=== PATIENT | male | born 1955 | race Caucasian/White ===

== ENCOUNTER 2016-12-17 09:05 | Inpatient (IN) | payer OTHER ==
[~2016-12-17] VITALS: Ht 190.5 cm; Wt 122.1 kg
[2016-12-17 09:56] LABS: URINE APPEARANCE CLEAR (CLEAR); URINE BILIRUBIN NEG (NEG); URINE COLOR DK YELLOW; URINE NITRITE NEG (NEG); URINE SPECIFIC GRAVITY 1.017 (1.000-1.030); UROBILINOGEN NEG (NEG); ZZUR CULT IF INDIC CLEAN CATCH YES
[2016-12-17 09:57] LABS: MANUAL MICROSCOPIC REQUIRED? NO; REVIEW REQ? NO
[2016-12-17] MEDS ORDERED: B-COTAB18 PO (10:26)
[2016-12-17] MEDS ORDERED: MULT-506 PO (10:26)
[2016-12-17] MEDS ORDERED: LEVO1TAB34 PO (10:26)
[2016-12-17] MEDS ORDERED: TRAM-10 PO (10:26)
[2016-12-17] MEDS ORDERED: ADAL1KIT SC (10:26)
[2016-12-17] MEDS ORDERED: PRED-301 PO (10:26)
[2016-12-17] MEDS ORDERED: VITA1TAB12 PO (10:26)
[2016-12-17] MEDS ORDERED: FOLI1TAB7 PO (10:26)
[2016-12-17] MEDS ORDERED: METH2.5T PO (10:26)
[2016-12-17] MEDS ORDERED: CALC600T9 PO (10:26)
[2016-12-17] MEDS ORDERED: ASPI81TA28 PO (10:26)
[2016-12-17] MEDS ORDERED: COD1000C PO (10:26)
[2016-12-17] MEDS ORDERED: OMEG10007 PO (10:26)
[2016-12-17] MEDS ORDERED: LISI-787 PO (10:26)
[2016-12-17] MEDS ORDERED: PIPERACILLIN/TAZOBACTAM 3.375 GM/100ML D5W IV STA (10:32)
[2016-12-17] MEDS ORDERED: PIPERACILL/TAZOBAC IV 3.375 GM in DEXTROSE 5% 100ML IV ONE (11:00)
[2016-12-17 11:37] LABS: BASO % 0.2 %; BASO ABS # 0.02 K/uL (0-0.2); COMPLETE YES; EOS % 1.1 %; HEMATOCRIT 41.5 % (42-52); IG% 0.2 %; LYMPH % 28.7 %; LYMPH ABS # 2.43 K/uL (1.2-3.4); MEAN CELL VOLUME 96.7 fL (80-100); MEAN CORPUSCULAR HGB CONC 35.2 g/dl (32-36); MEAN PLATELET VOLUME 10.3 fL (7.4-10.4); MONO % 8.6 %; NEUT % 61.2 %; PLATELET COUNT 246 K/uL (130-400); RED BLOOD COUNT 4.29 M/uL (4.7-6.1); WHITE BLOOD COUNT 8.47 K/uL (4.8-10.8)
[2016-12-17 11:45] LABS: CALCIUM 9.4 mg/dl (8.5-10.1); CREATININE 0.87 mg/dl (0.60-1.40)
--- NOTE | 2016-12-17 12:00 | Pharmacy Progress Note ---
ED Pharmacist Culture FollowUp Date of Service: Dec 17, 2016. Situation Reviewed printed report of sensitivities of E. coli isolated in urine culture obtained 12/14 @ 8091 at [facility] Background Susceptible: meropenem, Zosyn Intermediate: Macrobid Resistant: ampicillin, Unasyn, ceftriaxone, ciprofloxacin, levofloxacin, gentamicin, tobramycin, Bactrim Pending: cefepime Assessment No oral options available, therefore must use IV. Would prefer once daily dosing for eventual ease of outpatient administration, however both meropenem and Zosyn need to be administered multiple times per day. Ertapenem would allow for once daily administration, however sensitivities were not reported. Called [facility] Fanta Walter who referred me to [facility] [employer] . Spoke with microbiology lab who noted E test for ertapenem is currently pending - anticipate results later today. Recommendation Call [facility] to re-inquire about pending sensitivity to ertapenem [email or web address]: Ask for technologist in microbiology sensitivities (Bernice) Results anticipated 12/17 @ 1600
[2016-12-17] MEDS ORDERED: IV FLUIDS COMPLETED PRN (12:30)
[2016-12-17 13:30] VITALS: BP 144/89; PULSE 63; TEMP 36.7; O2SAT 97
[2016-12-17] MEDS ORDERED: PIPERACILL/TAZOBAC CONSULT ACTIVE PRN (13:45)
--- NOTE | 2016-12-17 13:48 | EMERGENCY ROOM VISIT NOTE ---
History Report prepared by Mckenna: Lety De Los Santos Under the Supervision of: Dr. Rich Knox D.O. First contact with patient: 09:26 Chief Complaint: REFERRED BY DOCTOR Stated Complaint: DR REFERRED History of Present Illness The patient is a 61 year old male who presents to the Emergency Room with complaints of constant urinary symptoms for the past couple of weeks. The patient states that his symptoms initially began the day after Labor Day. He had some bad food on Labor Day and had food poisoning. He states that he has been unable to urinate normally since that time. His right testicle has also been swollen and hard. The patient reports burning with urination and decreased urinary output. He has been feverish on and off. The patient saw his PCP on and was started on antibiotics for a UTI. His symptoms persisted. He was evaluated at his PCP's office three days ago and started on Levaquin. He received a phone call from the office yesterday saying that his urine culture grew out E.Coli and that he should come to the ED for IV antibiotics because it was resistant to the Levaquin. The patient had an ultrasound of his testicle on 11/28/16. Source of History: patient Onset: a couple of weeks ago Position: other (urinary tract) Quality: burning Timing: constant Modifying Factors (Worsening): urination Associated Symptoms: + fevers Note: Pt reports right testicle swollen and hard. Review of Systems See HPI for pertinent positives & negatives. A total of 10 systems reviewed and were otherwise negative. Past Medical & Surgical Medical Problems: (1) Rheumatoid arthritis (2) UTI (urinary tract infection) Family History No pertinent history stated. Social History Smoking Status: Never Smoker Current/Historical Medications Scheduled Adalimumab (Humira), 40 MG SC [id number] Aspirin (Aspirin Ec), 81 MG PO DAILY B-Complex Vitamins (Vitamin B Complex), 1 TAB PO DAILY Calcium Carbonate-Vitamin D (Calcium + D), 1 TAB PO BID Cod Liver Oil (Cod Liver Oil 1000 mg), 1 CAP PO BID Fish Oil (Jennings-3), 1,000 MG PO BID Folic Acid (Folvite), 1 MG PO DAILY Levofloxacin (Levaquin), 500 MG PO DAILY Lisinopril & Hydrochlorothiazi (Zestoretic 20-12.5 mg), 1 TAB PO DAILY Methotrexate (Methotrexate), 20 MG PO WK Multivitamin (Multivitamin), 1 TAB PO DAILY Prednisone (Prednisone), 5-20 MG PO DAILY Vitamin E (Vitamin E), 100 MG PO DAILY Scheduled PRN Tramadol (Ultram), 50 MG PO Q6 PRN for Pain Allergies Coded Allergies: No Known Allergies (Unverified , 12/17/16) Physical Exam Vital Signs Date Time Temp Pulse Resp B/P (MAP) Pulse Ox O2 Delivery O2 Flow Rate FiO2 12/17/16 12:00 95 16 123/85 96 Room Air 12/17/16 11:18 66 16 122/86 97 Room Air 12/17/16 09:07 36.7 83 18 162/95 96 Room Air Physical Exam CONSTITUTIONAL/VITAL SIGNS: Reviewed / noted above. GENERAL: Non-toxic in appearance. INTEGUMENTARY: Warm, dry, and [place]. HEAD: Normocephalic. EYES: without scleral icterus or trauma. ENT/OROPHARYNX: clear and moist. LYMPHADENOPATHY/NECK: Is supple without lymphadenopathy or meningismus. RESPIRATORY: Lungs clear and equal. CARDIOVASCULAR: Regular rate and rhythm. GI/ABDOMEN: Soft and nontender. No organomegaly or pulsatile mass. No rebound or guarding. Normal bowel sounds. EXTREMITIES: Warm and well perfused. BACK: No CVA tenderness. NEUROLOGICAL: Intact without focal deficits. PSYCHIATRIC: normal affect. MUSCULOSKELETAL: Normally developed with good muscle tone. Medical Decision & Procedures Laboratory Results 12/17/16 10:40 Red Blood Count 4.29, Mean Corpuscular Volume 96.7, Mean Corpuscular Hemoglobin 34.0, Mean Corpuscular Hemoglobin Concent 35.2, Mean Platelet Volume 10.3, Neutrophils (%) (Auto) 61.2, Lymphocytes (%) (Auto) 28.7, Monocytes (%) (Auto) 8.6, Eosinophils (%) (Auto) 1.1, Basophils (%) (Auto) 0.2, Neutrophils # (Auto) 5.18, Lymphocytes # (Auto) 2.43, Monocytes # (Auto) 0.73, Eosinophils # (Auto) 0.09, Basophils # (Auto) 0.02 12/17/16 10:40 Test 12/17/16 09:30 12/17/16 10:40 Urine Color DK YELLOW Urine Appearance CLEAR (CLEAR) Urine pH 6.0 (4.5-7.5) Urine Specific [place] 1.017 (1.000-1.030) Urine Protein NEG (NEG) Urine Glucose (UA) NEG (NEG) Urine Ketones NEG (NEG) Urine Occult Blood NEG (NEG) Urine Nitrite NEG (NEG) Urine Bilirubin NEG (NEG) Urine Urobilinogen NEG (NEG) Urine Leukocyte Esterase SMALL (NEG) Urine WBC (Auto) 10-30 /hpf (0-5) Urine RBC (Auto) 0-4 /hpf (0-4) Urine Hyaline Casts (Auto) 1-5 /lpf (0-5) Urine Epithelial Cells (Auto) 5-10 /lpf (0-5) Urine Bacteria (Auto) NEG (NEG) White Blood Count 8.47 K/uL (4.8-10.8) Red Blood Count 4.29 M/uL (4.7-6.1) Hemoglobin 14.6 g/dL (14.0-18.0) Hematocrit 41.5 % (42-52) Mean Corpuscular Volume 96.7 fL (80-100) Mean Corpuscular Hemoglobin 34.0 pg (25-34) Mean Corpuscular Hemoglobin Concent 35.2 g/dl (32-36) Platelet Count 246 K/uL (130-400) Mean Platelet Volume 10.3 fL (7.4-10.4) Neutrophils (%) (Auto) 61.2 % Lymphocytes (%) (Auto) 28.7 % Monocytes (%) (Auto) 8.6 % Eosinophils (%) (Auto) 1.1 % Basophils (%) (Auto) 0.2 % Neutrophils # (Auto) 5.18 K/uL (1.4-6.5) Lymphocytes # (Auto) 2.43 K/uL (1.2-3.4) Monocytes # (Auto) 0.73 K/uL (0.11-0.59) Eosinophils # (Auto) 0.09 K/uL (0-0.5) Basophils # (Auto) 0.02 K/uL (0-0.2) RDW Standard Deviation 47.2 fL (36.4-46.3) RDW Coefficient of Variation 13.7 % (11.5-14.5) Immature Granulocyte % (Auto) 0.2 % Immature Granulocyte # (Auto) 0.02 K/uL (0.00-0.02) Anion Gap 8.0 mmol/L (3-11) Est Creatinine Clear Calc Drug Dose 127.1 ml/min Estimated GFR () 108.7 Estimated GFR (Non- 93.8 BUN/Creatinine Ratio 15.0 (10-20) Calcium Level 9.4 mg/dl (8.5-10.1) Laboratory results as stated above per my review. Medications Administered Medications (Trade) Dose Ordered Sig/Rajesh Route Start Time Stop Time Status Last Admin Dose Admin Piperacillin Sod/ Tazobactam Sod 3.375 gm/Dextrose 115 ml @ 230 mls/hr NOW ONCE IV 12/17/16 11:00 12/17/16 11:29 DC 12/17/16 10:54 230 MLS/HR ED Course 09: Previous medical records were reviewed. The patient was evaluated in room B7. A complete history and physical examination was performed. 1032: Zosyn 3.375 gm IV 1044: I updated the patient on his results and treatment plan. He is doing well and getting his IV. 1100: Piperacillin Sod/Tazobactam Sod 3.375 gm/Dextrose 115 ml @ 230 mls/hr IV 1201: I spoke with Alisa Ugarte PA-C. We discussed the patients case. The patient will be evaluated by the [facility] Hospitalist Group for further management. 1213: I reassessed the patient at this time. He is feeling better and resting comfortably. I discussed the results and treatment plan with the patient. I answered all pertaining questions that he had. He expressed understanding and verbalized agreement. Medical Decision Differential considered: pancreatitis, hepatitis, or acute cholecystitis, AAA, UTI, pyelonephritis, kidney stones, appendicitis, diverticulitis, shingles, bowel obstruction mesenteric ischemia, intussusception, hernia, testicular torsion. This is a 61-year-old male who presents to the ED with a chief complaint of UTI. The patient was sent from PCP for urine culture that is only sensitive to IV antibiotics. The patient has an unremarkable exam. Vital signs are stable. The patient was treated with IV Zosyn. Urine today does not clearly show an infection. Urine cultures pending. Blood work was unremarkable. The patient was seen by the hospitalist service. See pharmacy note for additional information. Medication Reconcilliation Current Medication List: was personally reviewed by me Blood Pressure Screening Patient's blood pressure: Normal blood pressure Consults Time Called: 1158 Consulting Physician: Alisa Ugarte PA-C Returned Call: 1201 I spoke with Alisa Ugarte PA-C. We discussed the patients case. The patient will be evaluated by the [facility] Hospitalist Group for further management. Impression Primary Impression: E. coli UTI (urinary tract infection) Scribe Attestation The scribe's documentation has been prepared under my direction and personally reviewed by me in its entirety. I confirm that the note above accurately reflects all work, treatment, procedures, and medical decision making performed by me. Departure Information Dispostion Being Evaluated By Hospitalist Referrals Radha Rouse M.D. (PCP) Patient Instructions My [facility]
[2016-12-17 14:25] VITALS: BP 144/89; PULSE 63; TEMP 36.7; O2SAT 97; Ht 190.5 cm; Wt 122.1 kg
[2016-12-17] MEDS: SODIUM CHLORIDE 0.9% 1000ML 1,000 ML IV SCH (14:35)
--- NOTE | 2016-12-17 14:39 | Progress Note ---
Progress Note Date of Service Dec 17, 2016. Progress Note ID Consult Dictated #[id number] A/P: 1. UTI -Continue zosyn, further abx recs when culture available -thank you
--- NOTE | 2016-12-17 15:16 | INFECT. DISEASE CONSULTATION ---
DATE OF CONSULTATION: 12/17/2016 DATE OF CONSULTATION: 12/17/2016 HISTORY OF PRESENT ILLNESS: This is a 61-year-old gentleman who was told by his primary care office to come to the Emergency Room for intravenous antibiotics. He has been having urinary tract issues since Labor weekend. He reportedly was on antibiotics, multiple times for previously diagnosed UTI as an outpatient. He recently was started on Levaquin by his PCP after having symptoms of dysuria and also hardening of his right testicle. This has been ongoing. He reportedly had an ultrasound done as an outpatient which was unremarkable for any fluid collection. He states that he was having difficulty with urination and some dysuria; however, he denies any bleeding or any fevers or chills. He did have a urine culture done as an outpatient and was placed empirically on Levaquin. He took this Wednesday, Wednesday and Wednesday and did feel some improvement with his symptoms. He was called by his primary care physician and was told that this isolate was resistant to Levaquin that he needed to come to the Emergency Room for intravenous antibiotics. He was started on intravenous Zosyn and subsequently admitted to the hospital. He has been afebrile since admission. He has no complaints currently. He states that he has no chest pain, cough, shortness of breath, nausea, vomiting, diarrhea or abdominal pain. His appetite has been stable at home. Again, he currently has no urinary complaints and he feels somewhat improved and that the induration and swelling of his right testicular area is improving. All remaining review of systems are reviewed and are unremarkable. I do not have final culture and sensitivity results to review at this time. PAST MEDICAL HISTORY: Significant for rheumatoid arthritis and recently diagnosed UTI. FAMILY HISTORY: Noncontributory. SOCIAL HISTORY: Negative for tobacco use, alcohol use or drug use. ALLERGIES: He has no known drug allergies. CURRENT MEDICATIONS: Include folic acid, multivitamins, lisinopril, prednisone, calcium with vitamin D, omega 3 acids, Zosyn and Ultram. PHYSICAL EXAMINATION: VITAL SIGNS: He is afebrile, pulse 63, respiratory rate 16, blood pressure 144/89, oxygen saturation is 97% on room air. GENERAL: He is awake, alert and oriented x3. He is in no acute distress. HEAD, EYES, EARS, NOSE, AND THROAT: Mucous membranes are moist. Extraocular muscles are intact. HEART: Regular. LUNGS: Clear bilaterally. ABDOMEN: Soft, nontender, nondistended. EXTREMITIES: There is no lower extremity edema bilaterally. Examination of the scrotum reveals minimal erythema. There is no warmth or tenderness. There is no induration or fluctuance. There are no open areas. LABORATORY STUDIES: CBC reveals a white blood cell count of 8.4, hemoglobin 14.6 and platelets are 246. Chemistry panel reveals a sodium of 139, potassium 4.0, chloride 104, bicarb 27, BUN 13, creatinine 0.7 and glucose is 96. Blood and urine cultures are pending. There is no imaging to review. Previous urine culture is not available for my review. ASSESSMENT AND PLAN: Urinary tract infection. He likely will need to complete a 7-day course of antibiotics once final outpatient culture is available for review. Additional antibiotic recommendations will be made at that time. Thank you for this consultation.
--- NOTE | 2016-12-17 15:19 | HISTORY & PHYSICAL EXAMINATION ---
DATE OF ADMISSION: 12/17/2016 TIME: 1:41 p.m. HISTORY OF PRESENT ILLNESS: The patient is a very pleasant 61-year-old male with a history of rheumatoid arthritis, on methotrexate, Humira and prednisone, follows with Dr. Santana, hypertension and presenting with fevers, chills, dysuria and right testicular swelling since the beginning of the month. The patient follows with Dr. Rouse for primary care, Dr. Santana for rheumatology. The patient presented to his PCP back on 11/25/2016 for fever, chills, dysuria and right testicular swelling. Testicular ultrasound at that time was done, revealing orchitis, epididymitis and hydrocele. The patient was placed on ciprofloxacin p.o. for 10 days. Per patient, his symptoms improved but did not completely resolve. He then presented to his PCP back on 12/14/2016 and was prescribed empirically with Levaquin p.o. and was referred to urology. Two days later, the patient's urine culture came back and it was revealing E. coli multidrug resistant, sensitive to meropenem, Zosyn and intermediate to nitrofurantoin. The patient was called and was advised to come to the ER for further evaluation and management. At the ER, the patient was received with stable vital signs. Afebrile, blood pressure improved to 123/85, temperature is 36.7, pulse rate 95, respiratory rate is 16. White count is 8.4, creatinine is 0.87. Blood cultures are pending and urine cultures are also pending. On my exam, the patient is resting in bed, comfortable, still has some mild dysuria and also sweats over the weekend. He also reports that the right testicle swelling has improved but not completely resolved as well as the pain. Denies other symptoms. Denies headache, dizziness, nausea, vomiting, chest pain, shortness of breath, palpitations, abdominal pain, flank pain, changes with bowel movement. Denies hematuria. REVIEW OF SYSTEMS: All 10 systems reviewed and negative except for the ones mentioned above. PAST MEDICAL HISTORY: As per my H&P. MEDICATIONS: He takes levofloxacin 500 mg daily, Humira 40 mg injection under the skin every 2 weeks, tramadol 50 mg every 6 hours as needed, vitamin B complex daily, lisinopril/hydrochlorothiazide 20/12.5 mg p.o. daily, aspirin 81 mg daily, prednisone 5 mg b.i.d., methotrexate 2.5 mg 8 tablets once a week, vitamin E daily, folic acid daily, calcium and vitamin D daily, multivitamins daily, fish oil b.i.d., cod liver oil b.i.d. and calcium b.i.d. as well. PAST SURGICAL HISTORY: Colonoscopy, elbow arthroscopy, knee arthroscopy. FAMILY HISTORY: The patient has a history of arthritis. Father, cancer and diabetes, mother. PERSONAL AND SOCIAL HISTORY: He is . He is a former smoker. Denies alcohol or drug use. PHYSICAL EXAMINATION: VITAL SIGNS: Blood pressure is 123/85, pulse rate of 95, respiratory rate of 16, temperature 36.7, saturating 96% on room air. GENERAL: The patient is awake, alert, oriented x3, not in distress, speaks in sentences. No accessory muscle use. HEAD AND NECK: Atraumatic and normocephalic. Normal pupils. Full EOMs. No icterus. [place] conjunctivae. ENT: Grossly normal. NECK: No JVD, no lymphadenopathy or thyromegaly. HEART: Normal rate. Regular rhythm. No murmurs. LUNGS: Clear breath sounds bilaterally, rales or wheezes. ABDOMEN: Nondistended, normal bowel sounds, soft, nontender. EXTREMITIES: No bipedal edema. No rashes noted. GENITAL: The patient has an enlarged right testicle with no erythema, warmth or tenderness. Penile exam is essentially normal. LABS: White count is 8.4, hemoglobin is 14.6, platelet count 246. Chemistry -- sodium 139, potassium 4.0, BUN is 13, creatinine is 0.87, random glucose 96. Urinalysis, leukocyte esterase (+) WBC 10-30, epithelial cells 5-10. Blood cultures, urine cultures pending. ASSESSMENT AND PLAN: This is a very pleasant 61-year-old male with a history of rheumatoid arthritis, on Humira, prednisone and methotrexate, hypertension, presenting with dysuria, fever, chills and right testicular enlargement and pain times at least 3 weeks. 1. Urinary tract infection with multidrug resistant Escherichia coli sensitive to Zosyn and meropenem. The patient is not presenting with sepsis syndrome, afebrile, no leukocytosis but the urine culture is currently positive for Escherichia coli multidrug resistant, sensitive to Zosyn and meropenem. 2. Empiric Zosyn IV will be given, also IV fluids and an infectious disease consult will be placed. Anticipate PICC line placement and selection of once a day antibiotic regimen for at least 7-10 days. Awaiting final ID recommendations. The patient is amenable and agreeable to home IV antibiotics. 3. Orchitis with hydrocele in the setting of an Escherichia coli multidrug resistant urinary tract infection. This is based on ultrasound done in [facility] as an outpatient on 11/25/2016. The patient reports that with p.o. antibiotics, the swelling has improved but not completely. We will order a repeat testicular ultrasound to determine if there are any changes and we will consult urologist, Dr. Marvin. Antibiotic management as noted above and he will be placed on tramadol. 4. Rheumatoid arthritis, on prednisone, Humira and methotrexate. The patient reports that he has chronic bilateral hand pain and shoulder pain which is at baseline at this time. He currently takes prednisone 5 mg b.i.d., which will be continued and his Humira and methotrexate will be on hold, last taken Humira Wednesday, methotrexate last Wednesday. I have discussed the case with Dr. Catalan on the phone. In light of the ongoing infection, he recommends decrease the Prednisone to 5mg po daily and monitor response. 5. Hypertension, currently stable. Hold hydrochlorothiazide. The patient is currently on IV fluids because of an ongoing infection. We will continue lisinopril 20 mg daily, monitor BP. 6. Deep venous thrombosis prophylaxis, SCDs for now for possible urologic intervention. Otherwise, SCDs and early ambulation will be encouraged. CODE STATUS: Full code as per patient. DISPOSITION: Pending, likely to be discharged. Anticipate to be discharged when medically stable with PICC line, IV antibiotics. Follows with Dr. Rouse for primary care and Dr. Catalan for rheumatology. [facility] INSANEGreg
[2016-12-17] MEDS ORDERED: INFLUENZA ADMINISTRATION CHARGE ONE (15:30)
[2016-12-17] MEDS ORDERED: INFLUENZA VIRUS QUAD VACCINE 0.5 ML SYR IM. ONE (15:30)
--- NOTE | 2016-12-17 15:48 | DIAGNOSTIC IMAGING REPORT ---
(TESTICULAR) SCROTUM-CONT CLINICAL HISTORY: 61 years-old Male presenting with testicular swelling and pain, UTI. TECHNIQUE: Real-time grayscale and color and spectral Doppler ultrasound imaging of the scrotum was performed. COMPARISON: None. FINDINGS: Right testis: Normal echogenicity and echotexture. Testis measures 6.0 x 3.2 x 3.9 cm. Hyperemic testis with normal arterial waveforms in the testicular parenchyma. Enlarged and echogenic epididymis, which is hyperemic. Small hydrocele. No varicocele. Left testis: Normal echogenicity and echotexture. Testis measures 4.8 x 2.3 x 3.1 cm. Normal color Doppler flow and arterial waveforms in the testicular parenchyma. Epididymal head normal. Small hydrocele. No varicocele. Asymmetric hyperemia of the right testis. IMPRESSION: Findings consistent with right epididymitis-orchitis. Electronically signed by: Gil Neely M.D. 12/17/2016 3:46 PM Dictated Date/Time: 12/17/2016 3:44 PM
[2016-12-17] MEDS: PIPERACILL/TAZOBAC IV 3.375 GM in DEXTROSE 5% 100ML 100 ML IV SCH (16:23)
[2016-12-17] MEDS ORDERED: ONDANSETRON INJ 2 MG/ML 2 ML VIAL IV PRN (18:15)
[2016-12-17] MEDS ORDERED: ACETAMINOPHEN 325 MG TAB PO PRN (18:15)
--- NOTE | 2016-12-17 19:24 | Progress Note ---
Progress Note Date of Service Dec 17, 2016. Progress Note [facility] pharmacy coordinated with [facility] Microbiology E coli will be tested for sensitivity with Ertapenem (once a day dosing) please follow up Rodolfo Marques MD
[2016-12-17 20:00] VITALS: O2SAT 97
[2016-12-17] MEDS: OMEGA-3 (PURIFIED FISH OIL) 1 GM CAP PO SCH (20:42)
[2016-12-17] MEDS: CALCIUM 600MG + VIT D 400 IU TAB PO SCH (20:56)
[2016-12-17] MEDS ORDERED: COD LIVER OIL PO SCH (21:00)
[2016-12-17] MEDS ORDERED: CALCIUM 600MG + VIT D 400 IU TAB PO SCH (21:00)
[2016-12-17] MEDS ORDERED: OMEGA-3 (PURIFIED FISH OIL) 1 GM CAP PO SCH (21:00)
[2016-12-17] MEDS: TRAMADOL HCL 50 MG TAB PO PRN (21:07)
[2016-12-17 23:32] VITALS: BP 103/64; PULSE 62; TEMP 36.7; O2SAT 96
[2016-12-18] VITALS: O2SAT 97
[2016-12-18] MEDS ORDERED: KETOROLAC TROMETHAMINE 30 MG/ML VIAL IV STA (00:05)
[2016-12-18] MEDS ORDERED: IBUPROFEN 200 MG TAB PO PRN (00:15)
[2016-12-18] MEDS: PIPERACILL/TAZOBAC IV 3.375 GM in DEXTROSE 5% 100ML 100 ML IV SCH ×2 (00:38→07:40)
[2016-12-18] MEDS: SODIUM CHLORIDE 0.9% 1000ML 1,000 ML IV SCH ×2 (03:58→16:34)
[2016-12-18 07:17] LABS: BASO % 0.2 %; BASO ABS # 0.01 K/uL (0-0.2); COMPLETE YES; EOS % 1.7 %; HEMATOCRIT 39.6 % (42-52); IG% 0.2 %; LYMPH % 49.7 %; LYMPH ABS # 2.89 K/uL (1.2-3.4); MEAN CELL VOLUME 95.4 fL (80-100); MEAN CORPUSCULAR HEMOGLOBIN 32.8 pg (25-34); MEAN CORPUSCULAR HGB CONC 34.3 g/dl (32-36); MEAN PLATELET VOLUME 9.5 fL (7.4-10.4); MONO % 13.1 %; NEUT % 35.1 %; PLATELET COUNT 190 K/uL (130-400); RED BLOOD COUNT 4.15 M/uL (4.7-6.1); WHITE BLOOD COUNT 5.81 K/uL (4.8-10.8)
[2016-12-18] MEDS: CALCIUM 600MG + VIT D 400 IU TAB PO SCH (07:41)
[2016-12-18] MEDS: OMEGA-3 (PURIFIED FISH OIL) 1 GM CAP PO SCH (07:41)
[2016-12-18 07:48] LABS: BUN/CREATININE RATIO 13.7 (10-20); CALCIUM 8.6 mg/dl (8.5-10.1); POTASSIUM 4.2 mmol/L (3.5-5.1)
[2016-12-18] MEDS: TRAMADOL HCL 50 MG TAB PO PRN (07:54)
[2016-12-18 07:55] VITALS: BP 124/76; PULSE 64; TEMP 36.8; O2SAT 94
[2016-12-18] MEDS ORDERED: TOCOPHERYL, DL-ALPHA 100 INTERUNIT CAP PO SCH (09:00)
[2016-12-18] MEDS ORDERED: LISINOPRIL 20 MG TAB PO SCH (09:00)
[2016-12-18] MEDS ORDERED: MULTIVITAMIN TAB PO SCH (09:00)
[2016-12-18] MEDS ORDERED: VITAMIN B COMPLEX TAB PO SCH (09:00)
[2016-12-18 09:40] VITALS: O2SAT 94
--- NOTE | 2016-12-18 09:54 | Urology Consultation ---
History General Date of Service: Dec 18, 2016. Primary Care Physician: Radha Rouse M.D. Pt seen a urologist before?: No History of Present Illness 61 year old male admitted with UTI and epididymitis and orchitis. Pt reports he has been evaluated by his PCP starting on for complaints of fever and chills, Noted swelling of right testicle with pain and redness. He was treated initially with 10 days of Cipro BID. It improved somewhat but returned and worsened. This Wednesday- 12/14 he started Levaquin but reports it did not improve and he was sent to ER by PCP. Spoke with Dr. Toro- pt's previous urine culture from [facility] showed resistance pattern especially to oral antibiotics. He is currently on IV Zosyn. Reviewed testicular u/s images- note orchitis and epididymitis. He is afebrile and reports pain has subsided. White count and creatinine are normal. Initially he had bothersome urinary symptoms but these have resolved. Denies visible blood in his urine. Laboratory Labs were reviewed and are within normal limits unless listed below. Labs are available in the chart and at [facility] Problem List Medical Problems: (1) E. coli UTI (urinary tract infection) Status: Acute Past History rheumatoid arthritis Past Surgical History: orthopedic surgery Allergies Coded Allergies: No Known Allergies (Unverified , 12/17/16) Medications Home Medications: Home Meds and Scripts Medications Dose Route/Sig Max Daily Dose Days Date Category Dose Instructions Blanchard-3 (Fish Oil) 1 Ea Cap 1,000 Mg PO BID 12/17/16 Reported Vitamin B Complex (B-Complex Vitamins) 1 Tab Tab 1 Tab PO DAILY 12/17/16 Reported Cod Liver Oil 1000 mg (Cod Liver Oil) 1 Cap Cap 1 Cap PO BID 12/17/16 Reported Multivitamin (Multivitamins) Tab 1 Tab PO DAILY 12/17/16 Reported Calcium + D (Calcium Carbonate-Vitamin D) 1 Tab Tab 1 Tab PO BID 12/17/16 Reported 600-400MG Folvite (Folic Acid) 1 Mg Tab 1 Mg PO DAILY 12/17/16 Reported Vitamin E 100 Unit Tab 100 Mg PO DAILY 12/17/16 Reported Methotrexate 2.5 Mg Tab 20 Mg PO WK 12/17/16 Reported EIGHT 2.5 MG TABLETS Prednisone 5 Mg Tab 5-20 Mg PO DAILY 12/17/16 Reported Aspirin Ec (Aspirin) 81 Mg Tab 81 Mg PO DAILY 12/17/16 Reported Zestoretic 20-12.5 mg (Lisinopril & Hydrochlorothiazi) 1 Tab Tab 1 Tab PO DAILY 12/17/16 Reported Ultram (Tramadol HCl) 50 Mg Tab 50 Mg PO Q6 PRN 12/17/16 Reported Humira (Adalimumab) 40 Mg/0.8 Ml Kit 40 Mg SC [id number] 12/17/16 Reported Levaquin (Levofloxacin) 500 Mg Tab 500 Mg PO DAILY 12/17/16 Reported X 10 DAYS, UNTIL GONE. Inpatient Medications: Current Inpatient Medications Medications (Trade) Dose Ordered Sig/Rajesh Route Start Time Stop Time Status Last Admin Dose Admin Miscellaneous (Iv Fluids Completed) 1 ea PRN PRN N/A 12/17/16 12:30 12/17/17 12:29 Piperacillin Sod/ Tazobactam Sod 3.375 gm/Dextrose 115 ml @ 28.75 mls/ hr Q8H IV 12/17/16 16:00 12/27/16 15:59 12/18/16 07:40 28.75 MLS/HR Sodium Chloride 1,000 ml @ 75 mls/hr [id number] IV 12/17/16 13:30 01/16/17 13:29 12/18/16 03:58 75 MLS/HR Folic Acid (Folvite Tab) 1 mg DAILY PO 12/18/16 09:00 01/17/17 08:59 12/18/16 07:41 1 MG Multivitamins (Multivitamin Tab) 1 tab DAILY PO 12/18/16 09:00 01/17/17 08:59 12/18/16 07:41 1 TAB Tramadol HCl (Ultram Tab) 50 mg Q6 PRN PO 12/17/16 13:45 01/16/17 13:44 12/18/16 07:54 50 MG Vitamin B Complex (Vitamin B Complex) 1 tab DAILY PO 12/18/16 09:00 01/17/17 08:59 oh-Bukpy-Vojcrgurou Acetate (Vitamin E Cap) 100 interunit DAILY PO 12/18/16 09:00 01/17/17 08:59 12/18/16 07:42 100 INTERUNIT Lisinopril (Zestril Tab) 20 mg QAM PO 12/18/16 09:00 01/17/17 08:59 12/18/16 07:44 20 MG Piperacillin Sod/ Tazobactam Sod (Consult) 1 ea UD PRN N/A 12/17/16 13:45 01/16/17 13:44 Fish Oil (Blanchard-3 (Purified Fish Oil) Cap) 1 gm BID PO 12/17/16 21:00 01/16/17 20:59 12/18/16 07:41 1 GM Acetaminophen (Tylenol Tab) 650 mg Q4H PRN PO 12/17/16 18:15 01/16/17 18:14 Ondansetron HCl (Zofran Inj) 4 mg Q6H PRN IV 12/17/16 18:15 01/16/17 18:14 Calcium/Vitamin D (Caltrate Plus Tab) 1 tab BID PO 12/17/16 21:00 01/16/17 20:59 12/18/16 07:41 1 TAB Prednisone (PredniSONE TAB) 5 mg BID PO 12/18/16 09:00 01/16/17 20:59 12/18/16 07:41 5 MG Ibuprofen (Advil Tab) 400 mg Q6H PRN PO 12/18/16 00:15 01/17/17 00:14 Review of Systems Review of Systems Constitutional: No fever, No chills Neurological: No dizzy Endocrine: No excessive thirst Gastrointestinal: No abdominal pain, No nausea Cardiovascular: No chest pain Respiratory: No shortness of breath Skin: No rash Blood / Lymphatic: No bleed easily Ears / Nose / Throat: No hearing loss Psychologic / Mental: No nervous Male : + see HPI Physical Exam Vital Signs: Vital Signs Past 12 Hours Date Time Temp Pulse Resp B/P (MAP) Pulse Ox O2 Delivery O2 Flow Rate FiO2 12/18/16 09:40 Room Air 12/18/16 07:55 36.8 64 24 124/76 (92) 94 Room Air 12/18/16 00:00 97 Room Air 12/17/16 23:32 36.7 62 22 103/64 (77) 96 Room Air Physical Exam: General Appearance: WD/WN, no apparent distress ENT: hearing grossly normal Neck: no JVD Respiratory/Chest: lungs clear, normal breath sounds, no respiratory distress, no accessory muscle use Cardiovascular: regular rate, rhythm, no edema, no gallop, no JVD, no murmur Genitourinary - Male: Penis: normal penis Urethral Meatus: normal urethral meatus Testes: tenderness, size (right orchitis firm and enlarged) Epididymides: enlarged (right), tender (right) Scrotum: pertinent finding (erythematous) Extremities: normal inspection, no pedal edema, no calf tenderness Neurologic/Psychiatric: alert, normal mood/affect, oriented x 3 Skin: normal color, warm/dry, no rash Assessment & Plan Assessment & Plan epididymitis and orchitis UTI According to previous urine culture sensitivities- no available oral antibiotics. Recommend inserting PICC Line and treating with ertapenem IV daily for 14 days. Also recommend treating with trimethoprim 100mg nightly for 14 days once ertapenem course is finished. Pt reports he has appt with Dr. Marvin on Dec 31. He has not been seen by her in the past. If he would like to follow with us we are happy to see him. Our office will contact pt to ensure he has urologic follow up with at least 1 urologic service. Thanks for the consult. No further management for now. Please recall prn.
--- NOTE | 2016-12-18 10:43 | Progress Note ---
Subjective Date of Service: Dec 18, 2016. Subjective Pt evaluation today including: conversation w/ patient, physical exam, chart review, lab review pt feeling better. no f/c. no pain, no gu symptoms. tolerating abx. had ultrasound testicle, orchitis right. repeat urine culture with E. coli as well. final pending. blood cultures pending. previous outpt urine culture reportedly sensitive to Ertapenem. He remains on zosyn. awaiting picc line. all remaining ros reveiwed and are negative. Problem List Medical Problems: (1) E. coli UTI (urinary tract infection) Status: Acute Objective Vital Signs Date Time Temp Pulse Resp B/P (MAP) Pulse Ox O2 Delivery O2 Flow Rate FiO2 12/18/16 09:40 94 Room Air 12/18/16 08:00 Room Air 12/18/16 07:55 36.8 64 24 124/76 (92) 94 Room Air 12/18/16 00:00 97 Room Air 12/17/16 23:32 36.7 62 22 103/64 (77) 96 Room Air 12/17/16 20:00 97 Room Air 12/17/16 14:25 36.7 63 16 144/89 97 Room Air 12/17/16 13:30 36.7 63 16 144/89 (107) 97 Room Air 12/17/16 13:22 90 16 130/87 98 12/17/16 12:00 95 16 123/85 96 Room Air 12/17/16 11:18 66 16 122/86 97 Room Air Physical Exam General Appearance: WD/WN, no apparent distress Eyes: normal inspection, EOMI Neck: supple Respiratory/Chest: lungs clear, normal breath sounds, no respiratory distress Cardiovascular: regular rate, rhythm, no edema Abdomen: non tender, soft Extremities: non-tender, normal inspection, no pedal edema Neurologic/Psychiatric: alert, oriented x 3 Skin: normal color, no rash Laboratory Results Item Value Date Time Urine Culture - Preliminary Resulted 12/17/16 0930 Urine , Clean Catch Escherichia Coli Last 24 Hours Test 12/17/16 10:40 12/18/16 07:07 White Blood Count 8.47 K/uL 5.81 K/uL Red Blood Count 4.29 M/uL 4.15 M/uL Hemoglobin 14.6 g/dL 13.6 g/dL Hematocrit 41.5 % 39.6 % Mean Corpuscular Volume 96.7 fL 95.4 fL Mean Corpuscular Hemoglobin 34.0 pg 32.8 pg Mean Corpuscular Hemoglobin Concent 35.2 g/dl 34.3 g/dl Platelet Count 246 K/uL 190 K/uL Mean Platelet Volume 10.3 fL 9.5 fL Neutrophils (%) (Auto) 61.2 % 35.1 % Lymphocytes (%) (Auto) 28.7 % 49.7 % Monocytes (%) (Auto) 8.6 % 13.1 % Eosinophils (%) (Auto) 1.1 % 1.7 % Basophils (%) (Auto) 0.2 % 0.2 % Neutrophils # (Auto) 5.18 K/uL 2.04 K/uL Lymphocytes # (Auto) 2.43 K/uL 2.89 K/uL Monocytes # (Auto) 0.73 K/uL 0.76 K/uL Eosinophils # (Auto) 0.09 K/uL 0.10 K/uL Basophils # (Auto) 0.02 K/uL 0.01 K/uL RDW Standard Deviation 47.2 fL 47.4 fL RDW Coefficient of Variation 13.7 % 13.8 % Immature Granulocyte % (Auto) 0.2 % 0.2 % Immature Granulocyte # (Auto) 0.02 K/uL 0.01 K/uL Sodium Level 139 mmol/L 140 mmol/L Potassium Level 4.0 mmol/L 4.2 mmol/L Chloride Level 104 mmol/L 107 mmol/L Carbon Dioxide Level 27 mmol/L 25 mmol/L Anion Gap 8.0 mmol/L 8.0 mmol/L Blood Urea Nitrogen 13 mg/dl 14 mg/dl Creatinine 0.87 mg/dl 1.00 mg/dl Est Creatinine Clear Calc Drug Dose 127.1 ml/min 110.6 ml/min Estimated GFR () 108.7 94.4 Estimated GFR (Non- 93.8 81.4 BUN/Creatinine Ratio 15.0 13.7 Random Glucose 96 mg/dl 101 mg/dl Calcium Level 9.4 mg/dl 8.6 mg/dl Hepatitis C Antibody Screen NEG Assessment and Plan (1) E. coli UTI (urinary tract infection) Assessment & Plan: will change to ertapenem. follow repeat culture. anticipate pt will be d/c home on ertapenem daily once picc placed. would give 1 days with evidence of orchitis ok for d/c when otherwise stable.
[2016-12-18] MEDS ORDERED: ERTAPENEM IV 1 GM in SODIUM CHLOR 0.9% AD-VAN 50ML 50 ML IV SCH ×2 (12:00→15:15)
--- NOTE | 2016-12-18 12:36 | Progress Note ---
Medicine Progress Note Date & Time of Visit: Dec 18, 2016 at 11:58. Subjective Pt was seen and examined Lying in bed with no distress Pt said that he feels fine He would like to go home today Denies any chest pain, palpitation, dizziness and SOB Objective Last 8 Hrs Date Time Temp Pulse Resp B/P (MAP) Pulse Ox O2 Delivery O2 Flow Rate FiO2 12/18/16 09:40 94 Room Air 12/18/16 08:00 Room Air 12/18/16 07:55 36.8 64 24 124/76 (92) 94 Room Air Physical Exam: General- no acute distress Head- atraumatic Eyes- PERRL, EOMI ENT- oropharynx clear Neck- supple, no JVD Lungs- No wheezing, no crackles Heart- regular rhythm; no murmur Abdomen- normal bowel sounds, soft Extremities- no calf tenderness Neuro- alert, oriented x 3; PERRL, EOMI; no facial palsy Skin- warm & dry Laboratory Results: Last 24 Hours Test 12/18/16 07:07 White Blood Count 5.81 K/uL Red Blood Count 4.15 M/uL Hemoglobin 13.6 g/dL Hematocrit 39.6 % Mean Corpuscular Volume 95.4 fL Mean Corpuscular Hemoglobin 32.8 pg Mean Corpuscular Hemoglobin Concent 34.3 g/dl Platelet Count 190 K/uL Mean Platelet Volume 9.5 fL Neutrophils (%) (Auto) 35.1 % Lymphocytes (%) (Auto) 49.7 % Monocytes (%) (Auto) 13.1 % Eosinophils (%) (Auto) 1.7 % Basophils (%) (Auto) 0.2 % Neutrophils # (Auto) 2.04 K/uL Lymphocytes # (Auto) 2.89 K/uL Monocytes # (Auto) 0.76 K/uL Eosinophils # (Auto) 0.10 K/uL Basophils # (Auto) 0.01 K/uL RDW Standard Deviation 47.4 fL RDW Coefficient of Variation 13.8 % Immature Granulocyte % (Auto) 0.2 % Immature Granulocyte # (Auto) 0.01 K/uL Sodium Level 140 mmol/L Potassium Level 4.2 mmol/L Chloride Level 107 mmol/L Carbon Dioxide Level 25 mmol/L Anion Gap 8.0 mmol/L Blood Urea Nitrogen 14 mg/dl Creatinine 1.00 mg/dl Est Creatinine Clear Calc Drug Dose 110.6 ml/min Estimated GFR () 94.4 Estimated GFR (Non- 81.4 BUN/Creatinine Ratio 13.7 Random Glucose 101 mg/dl Calcium Level 8.6 mg/dl Assessment & Plan UTI Outpatient urine cx grew multidrug resistant E. Coli sensitive to Zosyn and meropenem. Failed outpatient treatment with cipro (10 days) and Levaquin Afebrile, no leukocytosis Recent Urine cx grew Ecoli Discussed with ID recommended to do 14 days of ertapenem Consent sign for PICC line Will talk to case management to arrange for outpatient abx infusion Orchitis/Hydrocele U/S showed findings consistent with right epididymitis-orchitis. Swelling decreased in size as per patient Case discussed with Urologist recommended to complete 14 days course of IV Abx Also recommend treating with trimethoprim 100mg nightly for 14 days once ertapenem course is finished. Follow up with urology as an outpatient Pt has an appointment with Dr. Marvin on Dec 31 He was seen in the hospital by [facility] urology Upon discharge he can follow with any urology group of his choice (only 1 group) Rheumatoid arthritis on prednisone, Humira and methotrexate. Admitting physician discussed case with rheumatology dr. Catalan Recommended to decrease prednisone to daily and hold humira and metrotrexate for now. Hypertension Hydrochlorothiazide on hold Continue lisinopril Stable Deep venous thrombosis prophylaxis On SCDs Will start on lovenox subq CODE STATUS Full code Disposition Waiting for PICC line Will talk to case management to arrange for IV abx infusion with Ertapenem Consultants: Urology ID Current Inpatient Medications: Current Inpatient Medications Medications (Trade) Dose Ordered Sig/Rajesh Route Start Time Stop Time Status Last Admin Dose Admin Miscellaneous (Iv Fluids Completed) 1 ea PRN PRN N/A 12/17/16 12:30 12/17/17 12:29 Sodium Chloride 1,000 ml @ 75 mls/hr [id number] IV 12/17/16 13:30 01/16/17 13:29 12/18/16 03:58 75 MLS/HR Folic Acid (Folvite Tab) 1 mg DAILY PO 12/18/16 09:00 01/17/17 08:59 12/18/16 07:41 1 MG Multivitamins (Multivitamin Tab) 1 tab DAILY PO 12/18/16 09:00 01/17/17 08:59 12/18/16 07:41 1 TAB Tramadol HCl (Ultram Tab) 50 mg Q6 PRN PO 12/17/16 13:45 01/16/17 13:44 12/18/16 07:54 50 MG Vitamin B Complex (Vitamin B Complex) 1 tab DAILY PO 12/18/16 09:00 01/17/17 08:59 12/18/16 09:50 1 TAB fe-Uejjs-Ozbhyjncbo Acetate (Vitamin E Cap) 100 interunit DAILY PO 12/18/16 09:00 01/17/17 08:59 12/18/16 07:42 100 INTERUNIT Lisinopril (Zestril Tab) 20 mg QAM PO 12/18/16 09:00 01/17/17 08:59 12/18/16 07:44 20 MG Fish Oil (Barney-3 (Purified Fish Oil) Cap) 1 gm BID PO 12/17/16 21:00 01/16/17 20:59 12/18/16 07:41 1 GM Acetaminophen (Tylenol Tab) 650 mg Q4H PRN PO 12/17/16 18:15 01/16/17 18:14 Ondansetron HCl (Zofran Inj) 4 mg Q6H PRN IV 12/17/16 18:15 01/16/17 18:14 Calcium/Vitamin D (Caltrate Plus Tab) 1 tab BID PO 12/17/16 21:00 01/16/17 20:59 12/18/16 07:41 1 TAB Prednisone (PredniSONE TAB) 5 mg BID PO 12/18/16 09:00 01/16/17 20:59 12/18/16 07:41 5 MG Ibuprofen (Advil Tab) 400 mg Q6H PRN PO 12/18/16 00:15 01/17/17 00:14 Ertapenem 1 gm/ Sodium Chloride 50 ml @ 120 mls/hr Q24H IV 12/18/16 12:00 12/28/16 11:59 12/18/16 11:51 120 MLS/HR
[2016-12-18 15:03] VITALS: BP 148/66; PULSE 65; TEMP 36.7; O2SAT 98
[2016-12-18] MEDS ORDERED: ERTA1INJ IV (18:25)
--- NOTE | 2016-12-18 18:34 | Discharge Instructions ---
Discharge Instructions Date of Service Dec 18, 2016. Admission Reason for Admission: UTI Discharge Discharge Diagnosis / Problem: Urinary tract infection/Orchitis/Hydrocele Discharge Goals Goal(s): Decrease discomfort, Improve function, Improve disease control Activity Recommendations Activity Limitations: resume your previous activity (as tolerated) . Instructions / Follow-Up Instructions / Follow-Up Discharge home with home health services Follow up with Heena Lora PA-C ( Dr. Rouse's colleague) on 12/22 @ 2:25 pm Please call to schedule a follow up appointment with urology Continue ertapenem infusion daily ( case management arranged for antibiotic infusion) Called your rheumatology Dr. Santana on when to restart Humira and methotrexate Keep PICC line area clean Current Hospital Diet Patient's current hospital diet: AHA Diet (Heart Healthy) Discharge Diet Recommended Diet: AHA Diet (Heart Healthy) Pending Studies Studies pending at discharge: yes List of pending studies: Final urine culture Medical Emergencies . Who to Call and When: Medical Emergencies: If at any time you feel your situation is an emergency, please call 911 immediately. . Non-Emergent Contact Non-Emergency issues call your: Primary Care Provider Call Non-Emergent contact if: you have a fever, you have any medication questions . . "Provider Documentation" section prepared by Lilibeth Toro. . VTE Core Measure Inpt VTE Proph given/why not?: SCD's
[2016-12-18 19:05] VITALS: BP 148/66; PULSE 65; TEMP 36.7; O2SAT 98
--- NOTE | 2016-12-20 22:50 | Discharge Summary ---
Discharge Summary Date of Service Dec 20, 2016. Discharge Summary Admission Date: Dec 17, 2016 at 12:45 Discharge Date: Dec 18, 2016 Discharge Disposition: Home with services Principal Diagnosis: Urinary tract infection Secondary Diagnoses/Problems: Orchitis/Hydrocele HTN Rheumatoid arthritis Procedures: [~ rep ct add3]] (TESTICULAR) SCROTUM-CONT CLINICAL HISTORY: 61 years-old Male presenting with testicular swelling and pain, UTI. TECHNIQUE: Real-time grayscale and color and spectral Doppler ultrasound imaging of the scrotum was performed. COMPARISON: None. FINDINGS: Right testis: Normal echogenicity and echotexture. Testis measures 6.0 x 3.2 x 3.9 cm. Hyperemic testis with normal arterial waveforms in the testicular parenchyma. Enlarged and echogenic epididymis, which is hyperemic. Small hydrocele. No varicocele. Left testis: Normal echogenicity and echotexture. Testis measures 4.8 x 2.3 x 3.1 cm. Normal color Doppler flow and arterial waveforms in the testicular parenchyma. Epididymal head normal. Small hydrocele. No varicocele. Asymmetric hyperemia of the right testis. IMPRESSION: Findings consistent with right epididymitis-orchitis. Electronically signed by: Gil Neely M.D. 12/17/2016 3:46 PM Dictated Date/Time: 12/17/2016 3:44 PM Consultations: Urology ID Medication Reconciliation New Medications: Ertapenem Sodium (Invanz) 1 Gm Inj 1 GM IV DAILY for 13 Days, VIAL Continued Medications: Adalimumab (Humira) 40 Mg/0.8 Ml Kit 40 MG SC [id number] Aspirin (Aspirin Ec) 81 Mg Tab 81 MG PO DAILY B-Complex Vitamins (Vitamin B Complex) 1 Tab Tab 1 TAB PO DAILY Calcium Carbonate-Vitamin D (Calcium + D) 1 Tab Tab 1 TAB PO BID 600-400MG Cod Liver Oil (Cod Liver Oil 1000 mg) 1 Cap Cap 1 CAP PO BID Fish Oil (Haskell-3) 1 Ea Cap 1000 MG PO BID Folic Acid (Folvite) 1 Mg Tab 1 MG PO DAILY Lisinopril & Hydrochlorothiazi (Zestoretic 20-12.5 mg) 1 Tab Tab 1 TAB PO DAILY Methotrexate (Methotrexate) 2.5 Mg Tab 20 MG PO WK EIGHT 2.5 MG TABLETS Multivitamin (Multivitamin) Tab 1 TAB PO DAILY Prednisone (Prednisone) 5 Mg Tab 5-20 MG PO DAILY Tramadol (Ultram) 50 Mg Tab 50 MG PO Q6 PRN for Pain Vitamin E (Vitamin E) 100 Unit Tab 100 MG PO DAILY Discontinued Medications: Levofloxacin (Levaquin) 500 Mg Tab 500 MG PO DAILY X 10 DAYS, UNTIL GONE. Admission Information HPI (per Admitting provider): HISTORY OF PRESENT ILLNESS: The patient is a very pleasant 61-year-old male with a history of rheumatoid arthritis, on methotrexate, Humira and prednisone, follows with Dr. Santana, hypertension and presenting with fevers, chills, dysuria and right testicular swelling since the beginning of the month. The patient follows with Dr. Rouse for primary care, Dr. Santana for rheumatology. The patient presented to his PCP back on 11/25/2016 for fever, chills, dysuria and right testicular swelling. Testicular ultrasound at that time was done, revealing orchitis, epididymitis and hydrocele. The patient was placed on ciprofloxacin p.o. for 10 days. Per patient, his symptoms improved but did not completely resolve. He then presented to his PCP back on 12/14/2016 and was prescribed empirically with Levaquin p.o. and was referred to urology. Two days later, the patient's urine culture came back and it was revealing E. coli multidrug resistant, sensitive to meropenem, Zosyn and intermediate to nitrofurantoin. The patient was called and was advised to come to the ER for further evaluation and management. At the ER, the patient was received with stable vital signs. Afebrile, blood pressure improved to 123/85, temperature is 36.7, pulse rate 95, respiratory rate is 16. White count is 8.4, creatinine is 0.87. Blood cultures are pending and urine cultures are also pending. On my exam, the patient is resting in bed, comfortable, still has some mild dysuria and also sweats over the weekend. He also reports that the right testicle swelling has improved but not completely resolved as well as the pain. Denies other symptoms. Denies headache, dizziness, nausea, vomiting, chest pain, shortness of breath, palpitations, abdominal pain, flank pain, changes with bowel movement. Denies hematuria. Physical Exam (per Admitting): VITAL SIGNS: Blood pressure is 123/85, pulse rate of 95, respiratory rate of 16, temperature 36.7, saturating 96% on room air. GENERAL: The patient is awake, alert, oriented x3, not in distress, speaks in sentences. No accessory muscle use. HEAD AND NECK: Atraumatic and normocephalic. Normal pupils. Full EOMs. No icterus. [place] conjunctivae. ENT: Grossly normal. NECK: No JVD, no lymphadenopathy or thyromegaly. HEART: Normal rate. Regular rhythm. No murmurs. LUNGS: Clear breath sounds bilaterally, rales or wheezes. ABDOMEN: Nondistended, normal bowel sounds, soft, nontender. EXTREMITIES: No bipedal edema. No rashes noted. GENITAL: The patient has an enlarged right testicle with no erythema, warmth or tenderness. Penile exam is essentially normal. Hospital Course UTI Outpatient urine cx grew multidrug resistant E. Coli sensitive to Zosyn and meropenem. Failed outpatient treatment with cipro (10 days) and Levaquin Afebrile, no leukocytosis Recent Urine cx grew Ecoli Discussed with ID recommended to do 14 days of ertapenem Consent sign for PICC line Will talk to case management to arrange for outpatient abx infusion Orchitis/Hydrocele U/S showed findings consistent with right epididymitis-orchitis. Swelling decreased in size as per patient Case discussed with Urologist recommended to complete 14 days course of IV Abx Also recommend treating with trimethoprim 100mg nightly for 14 days once ertapenem course is finished. Follow up with urology as an outpatient Pt has an appointment with Dr. Marvin on Dec 31 He was seen in the hospital by [facility] Upon discharge he can follow with any urology group of his choice (only 1 group) Rheumatoid arthritis on prednisone, Humira and methotrexate. Admitting physician discussed case with rheumatology dr. Catalan Recommended to decrease prednisone to daily and hold humira and metrotrexate for now. Hypertension Hydrochlorothiazide on hold Continue lisinopril Stable Deep venous thrombosis prophylaxis On SCDs Will start on lovenox subq CODE STATUS Full code Disposition Waiting for PICC line Will talk to case management to arrange for IV abx infusion with Ertapenem Total time spent on discharge = 35 minutes This includes examination of the patient, discharge planning, medication reconciliation, and communication with other providers. Discharge Instructions Discharge Instructions Date of Service Dec 18, 2016. Admission Reason for Admission: UTI Discharge Discharge Diagnosis / Problem: Urinary tract infection/Orchitis/Hydrocele Discharge Goals Goal(s): Decrease discomfort, Improve function, Improve disease control Activity Recommendations Activity Limitations: resume your previous activity (as tolerated) . Instructions / Follow-Up Instructions / Follow-Up Discharge home with home health services Follow up with Heena Lora PA-C ( Dr. Rouse's colleague) on 12/22 @ 2:25 pm Please call to schedule a follow up appointment with urology Continue ertapenem infusion daily ( case management arranged for antibiotic infusion) Called your rheumatology Dr. Santana on when to restart Humira and methotrexate Keep PICC line area clean Current Hospital Diet Patient's current hospital diet: AHA Diet (Heart Healthy) Discharge Diet Recommended Diet: AHA Diet (Heart Healthy) Pending Studies Studies pending at discharge: yes List of pending studies: Final urine culture Medical Emergencies . Who to Call and When: Medical Emergencies: If at any time you feel your situation is an emergency, please call 911 immediately. . Non-Emergent Contact Non-Emergency issues call your: Primary Care Provider Call Non-Emergent contact if: you have a fever, you have any medication questions . . "Provider Documentation" section prepared by Lilibeth Toro. . VTE Core Measure Inpt VTE Proph given/why not?: SCD's Signed: Signed: The status of this report is Draft * If report status is Draft, the document has not been finalized by the responsible provider. Additional Copies To Radha Rouse M.D.
== END 2016-12-18 19:20 | disposition home health service (06) | DRG 690 ==
LOC: C.EDB 09:06 → ENRESERV 12:39 → C.MS2W 12:45 → EDBEDREQ 12:49
PROVIDERS: ADMIT Internal Medicine; ATTEND Internal Medicine
PROC: 05H Upper Veins, Insertion (ICD-10-PCS; principal; 2016-12-18)
DX: N39.0 Urinary tract infection, site not specified (principal); N45.3 Epididymo-orchitis; N43.3 Hydrocele, unspecified; B96.20 Unspecified Escherichia coli [E. coli] as the cause of diseases classified elsewhere; Z16.24 Resistance to multiple antibiotics; I10 Essential (primary) hypertension; M06.9 Rheumatoid arthritis, unspecified; Z79.899 Other long term (current) drug therapy; Z79.52 Long term (current) use of systemic steroids; Z79.82 Long term (current) use of aspirin; Z87.891 Personal history of nicotine dependence; Z83.3 Family history of diabetes mellitus